=== PATIENT | female | born 1980 | race Caucasian/White ===

== ENCOUNTER 2016-08-22 11:36 | Emergency (ER) | payer OTHER ==
[2016-08-22] MEDS ORDERED: KETOROLAC TROMETHAMINE 60 MG/2 ML VIAL ONE (12:40)
[2016-08-22] MEDS ORDERED: HYDROMORPHONE HCL 1 MG/ML SYRINGE ONE ×2 (12:40→13:43)
[2016-08-22] MEDS ORDERED: ONDANSETRON 4 MG ODT TAB ONE (13:52)
== END 2016-08-22 15:38 | disposition home or self-care (01) ==
LOC: ED 11:36
DX: M54.5 Low back pain (principal); R20.9 Unspecified disturbances of skin sensation
CPT/HCPCS: 99283 ×2; 96372 ×3; J1170 ×2; J1885; A9270

== ENCOUNTER 2016-08-31 20:39 | Emergency (ER) | payer OTHER | END 2016-09-01 00:08 | disposition home or self-care (01) | LOC: ED 20:39 | DX: G43.909 Migraine, unspecified, not intractable, without status migrainosus (principal); J45.909 Unspecified asthma, uncomplicated; G89.29 Other chronic pain; M54.9 Dorsalgia, unspecified ==